=== PATIENT | female | born 1975 | race African-American/Black ===

== ENCOUNTER 2024-09-29 05:03 | Inpatient (IN) | payer OTHER ==
[2024-09-26 09:43] VITALS: BMI 25.7
[2024-09-29] MEDS: GABAPENTIN 300 MG CAPSULE PO ONE (07:01)
[2024-09-29] MEDS: PHENAZOPYRIDINE HCL 100 MG TABLET (FP) PO ONE (07:01)
[2024-09-29] MEDS: ACETAMINOPHEN 500 MG TABLET (FP) PO ONE (07:04)
[2024-09-29] MEDS ORDERED: BUPIVACAINE HCL/PF 0.5% (5MG/ML) 10 ML VIAL ONE (07:26)
[2024-09-29] MEDS ORDERED: MIDAZOLAM HCL 2 MG/2 ML SINGLE DOSE VIAL ONE (07:57)
[2024-09-29] MEDS ORDERED: ROCURONIUM BROMIDE 50 MG/5 ML SYRINGE ONE ×2 (07:58→08:39)
[2024-09-29] MEDS ORDERED: PROPOFOL 20 ML ONE (07:58)
[2024-09-29] MEDS ORDERED: PROPOFOL 40 ML ONE (08:18)
[2024-09-29] MEDS: ceFAZolin SODIUM 1 GM VIAL IVPB ONE (08:22)
[2024-09-29] MEDS ORDERED: ONDANSETRON 4 MG/2 ML VIAL ONE (09:15)
[2024-09-29] MEDS ORDERED: SUGAMMADEX SODIUM 200 MG/2 ML VIAL ONE (09:21)
[2024-09-29] MEDS ORDERED: KETOROLAC TROMETHAMINE 30 MG/1 ML VIAL ONE (09:26)
[2024-09-29] MEDS ORDERED: IBUPROFEN 800 MG/8 ML IJ IVPB PRN (09:45)
[2024-09-29] MEDS ORDERED: ONDANSETRON 4 MG/2 ML VIAL IVPUSH PRN (09:46)
[2024-09-29] MEDS: LACTATED RINGERS SOLUTION 1,000 ML IV SCH (09:50)
[2024-09-29] MEDS: ACETAMINOPHEN 1000 MG/100 ML BAG IVPB SCH ×2 (10:15→12:10)
[2024-09-29] MEDS: ACETAMINOPHEN 1000 MG/100 ML BAG IVPB ONE (10:24)
[2024-09-29] MEDS: CEFAZOLIN 2 GM in DEXTROSE 5%-WATER - 100 ML IVPB ONE (10:24)
[2024-09-29] MEDS: ENOXAPARIN NA (PORCINE) 40 MG/0.4 ML DISP.SYRIN SQ SCH (12:27)
[2024-09-29] MEDS: CEFAZOLIN 2 GM/D5W 2 GM/50 ML ML IVPB SCH (18:18)
[2024-09-30] MEDS: glyBURIDE 2.5 MG TABLET PO SCH (06:17)
[2024-09-30 06:23] VITALS: PULSE 80
[2024-09-30 08:10] LABS: HEMATOCRIT 32.3 % (32.4-45.2); HEMOGLOBIN 10.8 GM/dL (10.7-15.3); MCH 27.5 pg (25.7-33.7); MCHC 33.5 g/dl (32.0-36.0); MEAN PLT VOLUME 8.7 fl (7.5-11.1); PLATELET COUNT 182 10^3/uL (134-434); RBC 3.94 M/mm3 (3.60-5.2); RDW 16.2 % (11.6-15.6); WHITE BLOOD COUNT 11.2 K/mm3 (4.0-10.0)
[2024-09-30 08:25] LABS: POTASSIUM 3.7 mmol/L (3.5-5.1)
[2024-09-30 08:26] LABS: CALCIUM 8.4 mg/dL (8.5-10.1)
[2024-09-30 08:27] LABS: BLOOD UREA NITROGEN 6.8 mg/dL (7-18)
[2024-09-30 08:30] LABS: CREATININE 0.8 mg/dL (0.55-1.3)
[2024-09-30 09:11] VITALS: BP 117/70; RESP 16; TEMP 98.1
[2024-09-30] MEDS ORDERED: oxyCODONE HCL 5 MG TABLET PO PRN ×2 (09:52)
[2024-09-30] MEDS ORDERED: ACETAMINOPHEN 500 MG TABLET (FP) PO PRN (09:52)
[2024-09-30] MEDS ORDERED: IBUPROFEN 800 MG/8 ML IJ IVPB PRN (09:53)
[2024-09-30] MEDS: EMPAGLIFLOZIN (JARDIANCE) 25 MG TABLET PO SCH (11:22)
[2024-09-30] MEDS: DOCUSATE SODIUM 100 MG CAPSULE (FP) PO SCH (11:22)
[2024-09-30] MEDS: IBUPROFEN 600 MG TABLET (FP) PO PRN (12:22)
== END 2024-09-30 14:10 | disposition home or self-care (01) | DRG 743 ==
LOC: J2C 05:03 → J3W 12:04
PROVIDERS: ADMIT Obstetrics & Gynecology; ATTEND Obstetrics & Gynecology
PROC: 0UT90ZZ Resection of Uterus, Open Approach (ICD-10-PCS; principal; 2024-09-29 07:30)
PROC: 0UT70ZZ Resection of Bilateral Fallopian Tubes, Open Approach (ICD-10-PCS; 2024-09-29 07:30)
DX: D25.9 Leiomyoma of uterus, unspecified (principal); D25.1 Intramural leiomyoma of uterus; D25.0 Submucous leiomyoma of uterus; D25.2 Subserosal leiomyoma of uterus
CPT/HCPCS: 36415; 80048; 81025; 82962; 85027; 86850; 86900; 86901; 88307-TC; 94760; J0131